=== PATIENT | male | born 1975 | race Caucasian/White ===

== ENCOUNTER 2017-07-30 23:48 | Outpatient (CLI) ==
[2017-07-31 00:38] VITALS: BMI 29.0
== END 2017-07-30 23:49 | disposition critical access hospital (66) ==
LOC: AMBL 23:48
PROVIDERS: ATTEND Emergency Medicine
DX: F99 Mental disorder, not otherwise specified (principal); Z91.14 Patient's other noncompliance with medication regimen

== ENCOUNTER 2017-07-31 00:31 | Emergency (ER) ==
--- NOTE | 2017-07-31 00:36 | ED.PDOC ---
General ED Provider: Dr. CHRISTIAN MENJIVAR Chief Complaint: Behavioral Complaint Stated Complaint: Patient found knocking on the doors, they called EMS, they brought him for evaluation, says he is out of his medication, he is erratic, restless, says he has issues with russell. Time Seen by Physician: 00:34 Nursing and Triage Documentation Reviewed and Agree: Yes Psychological Complaint Exam - Psychiatric Complaint/Exam Patient Complains Of: Present: Other (Maniac) Symptoms Are: Still present Timing: Constant Episodes Lasting: Hours Initial Severity: Moderate Current Severity: Moderate Character: Present: Angry, Frustrated Aggravating: Reports: Recent stress, Alcohol use, Drug use, Medication noncompliance Associated Signs And Symptoms: Reports: Hostile, Confused. Denies: Hallucinating, Paranoid behavior, Sleep disturbance, Appetite change Completed Suicide Risk Factors: None Patient In Custody Of Police: No Social Withdrawal Present: Yes Social Isolation Present: Yes Prior Suicide Attempt: No Injury From Prior Suicide Attempt: No Related Surgical History: Reports: None Patient Uncooperative For Exam: No Mood: Present: Manic, Agitated, Anxious Appearance: Present: Unkempt, Poor hygiene Thought Process: Present: Illogical Insight: Present: Poor Judgement: Impaired Danger To Others: Yes Patient Medically Stable For: Psych evaluation, Referral, Transfer Differential Diagnoses: Bipolar Disorder, ETOH Intoxication Review of Systems - Review Of Systems Constitutional: Reports: No symptoms Eyes: Reports: No symptoms Ears, Nose, Mouth, Throat: Reports: No symptoms Respiratory: Reports: No symptoms Cardiac: Reports: No symptoms GI: Reports: No symptoms : Reports: No symptoms Musculoskeletal: Reports: No symptoms Skin: Reports: No symptoms Neurological: Reports: Anxiety, Emotional problems Endocrine: Reports: No symptoms Hematologic/Lymphatic: Reports: No symptoms All Other Systems: Reviewed and Negative Past Medical History - Past Medical History Previously Healthy: Yes Endocrine: Reports: None Cardiovascular: Reports: None Respiratory: Reports: None Hematological: Reports: None Gastrointestinal: Reports: None Genitourinary: Reports: None Neuro/Psych: Reports: Anxiety, Depression, Bipolar Disorder Musculoskeletal: Reports: None Cancer: Reports: None - Surgical History General Surgical History: Reports: None - Family History Family History: Reports: None Physical Exam - Physical Exam Appearance: Ill-appearing Ill-appearing: Moderate Eyes: SILVIA, EOMI ENT: Ears normal, Nose normal, Oropharynx normal Respiratory: Airway patent, Breath sounds clear, Breath sounds equal, Respirations nonlabored Cardiovascular: RRR, Pulses normal, No rub, No murmur GI/: Soft, Nontender, No masses, Bowel sounds normal, No Organomegaly Musculoskeletal: Normal strength, ROM intact, No edema, No calf tenderness Skin: Warm, Dry, Normal color Neurological: Sensation intact, Motor intact, Reflexes intact, Cranial nerves intact, Alert, Oriented Psychiatric: Anxious Critical Care Note - Critical Care Note Total Time (mins): 20 Course - Course Hematology/Chemistry: 07/31/17 01:00 07/31/17 01:00 Orders, Labs, Meds: Lab Review 07/31/17 07/31/17 07/31/17 00:30 00:30 01:00 WBC 12.49 H RBC 4.81 Hgb 15.1 Hct 42.8 MCV 89.0 MCH 31.4 H MCHC 35.3 RDW Coeff of Nicol 12.1 Plt Count 251 Immature Gran % (Auto) 1.3 Neut % (Auto) 71.5 Lymph % (Auto) 15.5 Edgar % (Auto) 10.6 H Eos % (Auto) 0.5 Baso % (Auto) 0.6 Immature Gran # (Auto) 0.2 Neut # 9.0 H Lymph # 1.9 Edgar # 1.3 Eos # 0.1 Baso # 0.1 Sodium Potassium Chloride Carbon Dioxide Anion Gap BUN Creatinine Estimated GFR (MDRD) BUN/Creatinine Ratio Glucose Calcium Total Bilirubin AST ALT Alkaline Phosphatase Total Protein Albumin Globulin Albumin/Globulin Ratio TSH Urine Color Yellow Urine Clarity Clear Urine pH 6.5 Ur Specific [place] 1.010 Urine Protein Negative Urine Glucose (UA) Negative Urine Ketones Trace Urine Blood Trace-intact Urine Nitrite Negative Urine Bilirubin Negative Urine Urobilinogen 0.2 Ur Leukocyte Esterase Negative Urine Microscopic RBC 0-2 Ur Squamous Epith Cells Not present Salicylate Level mg/dL Urine Opiates Screen Negative Ur Oxycodone Screen Negative Urine Methadone Screen Negative Ur Propoxyphene Screen Negative Acetaminophen Ur Barbiturates Screen Negative U Tricyclic Antidepress Negative Ur Phencyclidine Scrn Negative Ur Amphetamine Screen Positive U Methamphetamines Scrn Positive U Benzodiazepines Scrn Negative Urine Cocaine Screen Negative U Cannabinoids Screen Negative Plasma/Serum Alcohol 07/31/17 01:00 WBC RBC Hgb Hct MCV MCH MCHC RDW Coeff of Nicol Plt Count Immature Gran % (Auto) Neut % (Auto) Lymph % (Auto) Edgar % (Auto) Eos % (Auto) Baso % (Auto) Immature Gran # (Auto) Neut # Lymph # Edgar # Eos # Baso # Sodium 139 Potassium 4.3 Chloride 102 Carbon Dioxide 24 Anion Gap 17.3 BUN 12 Creatinine 1.09 Estimated GFR (MDRD) 75.00 BUN/Creatinine Ratio 11.00 Glucose 89 Calcium 9.9 Total Bilirubin 0.66 AST 28 ALT 24 Alkaline Phosphatase 86 Total Protein 7.3 Albumin 4.2 Globulin 3.1 Albumin/Globulin Ratio 1.35 TSH 0.485 Urine Color Urine Clarity Urine pH Ur Specific [place] Urine Protein Urine Glucose (UA) Urine Ketones Urine Blood Urine Nitrite Urine Bilirubin Urine Urobilinogen Ur Leukocyte Esterase Urine Microscopic RBC Ur Squamous Epith Cells Salicylate Level mg/dL < 5.0 Urine Opiates Screen Ur Oxycodone Screen Urine Methadone Screen Ur Propoxyphene Screen Acetaminophen < 3 L Ur Barbiturates Screen U Tricyclic Antidepress Ur Phencyclidine Scrn Ur Amphetamine Screen U Methamphetamines Scrn U Benzodiazepines Scrn Urine Cocaine Screen U Cannabinoids Screen Plasma/Serum Alcohol < 10.0 Orders Category Date Time Status EKG-(ED ONLY) Stat CARDIO 07/31/17 00:32 Completed ED IV/MEDIPORT/POWERPORT .ONCE EMERGENCY 07/31/17 00:32 Active Mental Health Consult [ED MENTAL HEALTH CONSULT] .ONCE EMERGENCY 07/31/17 00: 40 Active ACETAMINOPHEN Stat LAB 07/31/17 01:00 Completed ASPIRIN LEVEL [SALICYLATE] Stat LAB 07/31/17 01:00 Completed BLOOD ALCOHOL Stat LAB 07/31/17 01:00 Completed CBC W/ AUTO DIFF Stat LAB 07/31/17 01:00 Completed COMPREHENSIVE METABOLIC PANEL Stat LAB 07/31/17 01:00 Completed DRUG SCREEN, URINE, RAPID Stat LAB 07/31/17 00:30 Completed THYROID STIMULATING HORMONE Stat LAB 07/31/17 01:00 Completed URINALYSIS C & S IF INDICATED Stat LAB 07/31/17 00:30 Completed 0.9 % Sodium Chloride [Saline Flush] MEDS 07/31/17 00:32 Discontinued 1 syr IVF PRN PRN Sodium Chloride 0.9% [Sodium Chloride] 1,000 ml MEDS 07/31/17 00:39 Discontinued IV 100 mls/hr Ziprasidone Mesylate [Geodon] MEDS 07/31/17 00:39 Discontinued 10 mg IM ONCE STA Medications Discontinued Medications Generic Name Dose Route Start Last Admin Trade Name Freq PRN Reason Stop Dose Admin Sodium Chloride 1,000 mls @ 100 mls/hr 07/31/17 00:39 07/31/17 01:30 Sodium Chloride IV 07/31/17 10:38 100 mls/hr .Q10H STA Administration Sodium Chloride 1 syr 07/31/17 00:32 07/31/17 01:30 Saline Flush IVF 1 syr PRN PRN Administration To flush IV Ziprasidone 10 mg 07/31/17 00:39 07/31/17 01:30 Geodon IM 07/31/17 00:40 10 mg ONCE STA Administration Vital Signs: Temp Pulse Resp BP Pulse Ox 07/31/17 03:54 98.2 F 78 15 135/76 97 07/31/17 00:32 98.1 F 103 H 20 148/90 H 96 Departure - Departure Time of Disposition: 12:48 Disposition: AMA Discharge Problem: Problem behavior, Bipolar 1 disorder, manic, moderate Instructions: Bipolar Disorder (ED) Condition: Stable Pt referred to PMD for follow-up: Yes Allergies/Adverse Reactions: Allergies No Known Allergies Allergy (Unverified 07/31/17 00:37) Home Medications: Ambulatory Orders 1 [Unobtainable] 07/31/17 Disposition Discussed With: Patient
[2017-07-31 00:38] VITALS: BMI 29.0
[2017-07-31] MEDS ORDERED: SODIUM CHLORIDE 1,000 ML IV STA (00:39)
[2017-07-31] MEDS ORDERED: GEODON IM STA (00:39)
[2017-07-31] MEDS ORDERED: HALDOL IM STA (00:39)
[2017-07-31 01:30] LABS: ADD URINE MICROSCOPIC YES; BILIRUBIN,URINE Negative (NEGATIVE); KETONES,URINE Trace (NEGATIVE); LEUKOCYTE ESTERASE ,URINE Negative (NEGATIVE); NITRITE,URINE Negative (NEGATIVE); PH,URINE 6.5 (5-9); PROTEIN,URINE Negative (NEGATIVE); URINE, BLOOD Trace-intact (NEGATIVE)
[2017-07-31 01:35] LABS: COCAIN SCREEN,URINE NEGATIVE (NEGATIVE)
[2017-07-31 01:36] LABS: BASOPHILS # (AUTO) 0.1 K/uL (0-0.2); BASOPHILS % (AUTO) 0.6 % (0.0-3.0); EOSINOPHILS # (AUTO) 0.1 K/ul (0.0-0.7); EOSINOPHILS % (AUTO) 0.5 % (0.0-7.0); HEMATOCRIT 42.8 % (42.0-52.0); HEMOGLOBIN 15.1 g/dl (14.0-18.0); IMMATURE GRANULOCYTE % (AUTO) 1.3 % (0.0-5.0); LYMPHOCYTES # (AUTO) 1.9 K/uL (0.60-3.4); LYMPHOCYTES % (AUTO) 15.5 (10.0-50.0); MEAN CORPUSCULAR HEMOGLOBIN 31.4 pg (27.0-31.0); MEAN CORPUSCULAR HGB CONC 35.3 (31.8-35.4); MONOCYTES # (AUTO) 1.3 K/uL (0.4-2.0); MONOCYTES % (AUTO) 10.6 (0-10); NEUTROPHILS % (AUTO) 71.5; PLATELET COUNT 251 10^3/uL (140-440); RED BLOOD COUNT 4.81 10^6/ul (4.70-6.10); WHITE BLOOD COUNT 12.49 K/ul (4.2-10.2)
[2017-07-31 01:57] LABS: ACETAMINOPHEN < 3 ug/ml (10-30); ALANINE AMINOTRANSFERASE 24 U/L (12-78); ALBUMIN 4.2 g/dL (3.4-5.0); ALBUMIN/GLOBULIN RATIO 1.35; ALKALINE PHOSPHATASE 86 U/L (50-136); ANION GAP 17.3; ASPARTATE AMINO TRANSFERASE 28 U/L (15-37); BILIRUBIN,TOTAL 0.66 mg/dL (0.00-1.20); BLOOD UREA NITROGEN 12 mg/dL (7-18); CALCIUM 9.9 mg/dL (8.2-10.2); CARBON DIOXIDE 24 mmol/L (21-32); CHLORIDE 102 mmol/L (98-107); CREATININE 1.09 mg/dL (0.60-1.10); GLUCOSE 89 mg/dL (70-100); POTASSIUM 4.3 mmol/L (3.5-5.1); SALICYLATE < 5.0 mg/dL (2.8-20.0); SODIUM 139 mmol/L (136-145); TOTAL PROTEIN 7.3 g/dL (6.4-8.2)
[2017-07-31 03:56] VITALS: BP 135/76; TEMP 98.2
== END 2017-07-31 04:51 | disposition left against medical advice (07) ==
LOC: ED 00:31
DX: F31.12 Bipolar disorder, current episode manic without psychotic features, moderate (principal)
CPT/HCPCS: 36415; 80053; 80306; 80307; 81001; 84443; 85025; 93005; 93010; 96360; 96361; 96372; 99284